=== PATIENT | female | born 1985 | race Caucasian/White ===

== ENCOUNTER 2017-07-06 08:05 | Emergency (ER) | payer MEDICAID, OTHER ==
[~2017-07-06] VITALS: Ht 167.6 cm; Wt 111.1 kg
[~2017-07-06 08:05] MED LIST: FERR325E14 PO; GUAI-646 PO; PREN-385 PO
[2017-07-06 08:08] VITALS: BP 124/60
--- NOTE | 2017-07-06 08:08 | NUR ---
Patient to bed 7 by EMS at this time.
[2017-07-06] MEDS ORDERED: KETOROLAC 30 MG/ML VIAL IM ONE (08:40)
[2017-07-06] MEDS ORDERED: CYCLOBENZAPRINE 10 MG TAB PO ONE (08:40)
--- NOTE | 2017-07-06 08:49 | NUR ---
PT TO X-RAY
--- NOTE | 2017-07-06 09:43 | NUR ---
AT BEDSIDE SPEAKING WITH PT
[2017-07-06 09:58] VITALS: BP 119/78
== END 2017-07-06 09:58 | disposition home or self-care (01) ==
LOC: MED 08:05
DX: S29.012A Strain of muscle and tendon of back wall of thorax, initial encounter (principal); S39.012A Strain of muscle, fascia and tendon of lower back, initial encounter; Z88.1 Allergy status to other antibiotic agents; F31.9 Bipolar disorder, unspecified; V43.92XA Unspecified car occupant injured in collision with other type car in traffic accident, initial encounter; Y93.I9 Activity, other involving external motion; Y92.488 Other paved roadways as the place of occurrence of the external cause; Y99.8 Other external cause status
CPT/HCPCS: 72072; 72110; 96372; 99284; J1885